=== PATIENT | female | born 1950 | race Caucasian/White ===

== ENCOUNTER → 2018-01-11 08:10 | Outpatient (CLI) | payer MEDICARE, OTHER, SELFPAY ==
--- NOTE | 2018-01-11 08:25 | CT_ITS ---
STUDY: CT LEFT FOOT REASON FOR EXAM: Female, 67 years old. Left effusion following bunionectomy surgery 20 years ago RADIATION DOSAGE (If Supplied By Facility): CTDIvol = ( 15.35 ) mGy, DLP = ( 358.82 ) mGycm TECHNIQUE: Thin section transaxial imaging of the foot was obtained, with sagittal and coronal reconstructed images. Individualized dose optimization techniques were used for this CT. COMPARISON: None. FINDINGS: There is a dorsal fusion plate traversing the first metatarsophalangeal joint. There appear to be lytic changes with fragmentation of the left first metatarsal head. There are degenerative changes of the first metatarsotarsal articulation. There is also demonstrated orthopedic hardware in the region of the fifth metatarsal head, possibly stabilizing a fracture of the junction of distal shaft and head of such. There are mild degenerative changes of the intertarsal articulations. There is an enthesophyte in the region of the Achilles tendon insertion on the posterior calcaneal tuberosity. CT/Extremity Lower without Contra IMPRESSION: Postsurgical and degenerative changes as detailed above. Plain films may be helpful for further evaluation. Electronically Signed: Nick Anderson MD at 16:32 EDT , Service support ,
== END ==
PROVIDERS: Referring Provider Orthopaedic Surgery; Visit Provider Orthopaedic Surgery
DX: M20.22 Hallux rigidus, left foot (principal)
CPT/HCPCS: 73700